=== PATIENT | female | born 1990 | race Caucasian/White ===

== ENCOUNTER 2016-12-03 08:23 | Emergency (ER) | payer OTHER ==
[~2016-12-03 08:23] MED LIST: ACETAMINOPHEN PO; BCP; BIRTH CONTROL PILL; BIRTH CONTROL PILL PO; DEPO-PROVER150 MG/ML INJ; FEOSOL PO; FLEXERIL PO; GAS X; IBUPROFEN PO; IBUPROFEN800 MG PO; IRON325 ( 651 PO; KEFLEX500 M1 PO; LORTAB 7.5-3251 EACH PO; NECON; NECON1 TA1 PO; NO MEDICATIONS; PRENATAL1 TA1 PO; PROZAC PO; SEROQUEL PO; SYNTHROID; SYNTHROID PO; ULTRAM PO; ZITHROMAX PO; [UNRECOGNIZED DRUG - OTHER]
== END 2016-12-03 09:10 | disposition home or self-care (01) ==
LOC: CED 08:23
DX: M94.0 Chondrocostal junction syndrome [Tietze] (principal); F17.210 Nicotine dependence, cigarettes, uncomplicated; Z90.89 Acquired absence of other organs; Z90.49 Acquired absence of other specified parts of digestive tract
CPT/HCPCS: 84703; 99283